=== PATIENT | female | born 1970 | race Caucasian/White ===

== ENCOUNTER 2018-03-26 11:32 | Emergency (ER) | payer OTHER ==
[2018-03-26] MEDS ORDERED: Ketorolac INJ* 30 MG/ML 1 ML VIAL IM ONE (12:34)
[2018-03-26] MEDS ORDERED: Cyclobenzaprine TAB* 10 MG PO ONE (12:34)
--- NOTE | 2018-03-26 13:47 | RAD ---
INDICATION: Left shoulder pain COMPARISON: None TECHNIQUE: Routine frontal, Y and axial views were obtained. FINDINGS: The bony structures, joint spaces, and soft tissues are normal for age. IMPRESSION: NO ACUTE FINDINGS.
[2018-03-26 14:18] VITALS: BP 128/66
--- NOTE | 2018-03-26 14:33 | ED ---
Upper Extremity Pain - HPI Summary HPI Summary: Patient is a 47-year-old female with no significant history of osteoarthritis the joint disease her previous shoulder injury presenting to the ED with left anterior and superior shoulder pain. She sustained an injury at work 2 days ago stating a salad cutter pushed into her left anterior shoulder. She states this has been injured since then but continues to work through the injury. Today the injury occurred again and she states she has intermittent numbness and tingling down the arm as well as up into the left side of the neck. Tenderness with movement and pain improves with rest. She has not taken ibuprofen or other medications for relief. She has a history of degenerative disc disease and has bilateral cervical tenderness at baseline. - History of Current Complaint Chief Complaint: EDExtremityUpper Stated Complaint: LT SHOULDER INJURY Time Seen by Provider: 03/26/18 11:41 Hx Obtained From: Patient Mechanism Of Injury: Direct Blow Onset/Duration: Started Days Ago Timing: Constant Severity Initially: Moderate Severity Currently: Moderate Pain Location: Collar, Shoulder Character: Aching Aggravating Factor(s): Movement, Lifting, Extension, Abduction Alleviating Factor(s): Rest Associated Signs & Symptoms: Positive: Numbness/Tingling, Neck Pain. Negative: Swelling, Redness, Bruising, Nausea Related History: Occupational Injury, Dominant Hand Left - Risk Factors Non-Orthopedic Risk Factor: Negative DVT Risk Factors: Negative Septic Arthritis Risk Factor: Negative Compartment Syndrome Risk Factors: Pain - Allergies/Home Medications Allergies/Adverse Reactions: Allergies Allergy/AdvReac Type Severity Reaction Status Date / Time codeine Allergy Rash Verified 03/26/18 11:42 PMH/Surg Hx/FS Hx/Imm Hx Previously Healthy: Yes - Immunization History Hx Pertussis Vaccination: No Immunizations Up to Date: Unable to Obtain/Confirm Infectious Disease History: No Infectious Disease History: Denies: Traveled Outside the [place] in Last 30 Days - Social History Occupation: Employed Full-time Lives: With Family Alcohol Use: Rare Hx Substance Use: No Substance Use Type: Reports: None Hx Tobacco Use: Yes Smoking Status (MU): Heavy Every Day Tobacco Smoker Review of Systems Constitutional: Negative Negative: Fever, Chills, Fatigue, Skin Diaphoresis Negative: Palpitations, Chest Pain Negative: Shortness Of Breath, Cough Negative: Abdominal Pain Genitourinary: Negative Positive: no symptoms reported, see HPI Positive: Arthralgia, Myalgia Skin: Negative Positive: Paresthesia, Numbness All Other Systems Reviewed And Are Negative: Yes Physical Exam Triage Information Reviewed: Yes Vital Signs On Initial Exam: Initial Vitals Temp Pulse Resp BP Pulse Ox 98.3 F 70 16 148/88 99 03/26/18 11:35 03/26/18 11:35 03/26/18 11:35 03/26/18 11:35 03/26/18 11:35 Vital Signs Reviewed: Yes Appearance: Positive: Well-Appearing, Well-Nourished Skin: Positive: Skin Color Reflects Adequate Perfusion Head/Face: Positive: Normal Head/Face Inspection Eyes: Positive: EOMI, JOVANNI Neck: Positive: Supple, No Lymphadenopathy Respiratory/Lung Sounds: Positive: Clear to Auscultation, Breath Sounds Present Cardiovascular: Positive: RRR, Pulses are Symmetrical in both Upper and Lower Extremities Musculoskeletal: Positive: Pain @ - left anterior and superior shoulder pain - worse with abduction Neurological: Positive: Alert, Oriented to Person Place, Time Psychiatric: Positive: Affect/Mood Appropriate AVPU Assessment: Alert Diagnostics - Vital Signs Vital Signs Temp Pulse Resp BP Pulse Ox 03/26/18 14:17 97.2 F 88 17 128/66 96 03/26/18 11:35 98.3 F 70 16 148/88 99 - Laboratory Lab Statement: Any lab studies that have been ordered have been reviewed, and results considered in the medical decision making process. Course/Dx - Course Course Of Treatment: During the course of treatment, the patient is evaluated for left shoulder pain secondary to injury at work. Left shoulder x-rays obtained which show negative for any acute bony findings. Discussed results with the patient. I discussed with the patient I believe there to be a component of tendinitis as she is complaining of tenderness to the anterior and superior shoulder with radiation of pain and numbness and tingling to the left arm which has been intermittent. For her occupation she has overuse of this extremity. She is left-hand dominant. I have given her Flexeril and Toradol for relief. She is given a note for work and I've discussed extensively with the patient information about rotator cuff tendinitis as well as overuse injury. She will follow-up with orthopedics for any worsening symptoms. - Diagnoses Differential Diagnosis/HQI/PQRI: Positive: Strain, Sprain Provider Diagnoses: Rotator cuff tendinitis Discharge - Sign-Out/Discharge Documenting (check all that apply): Discharge/Admit/Transfer - Discharge Plan Condition: Stable Disposition: HOME Prescriptions: Cyclobenzaprine TAB* [Flexeril TAB*] 10 mg PO BID PRN #15 tab PRN Reason: Spasms Ketorolac TAB * [Toradol TAB *] 10 mg PO Q6H #16 tab Patient Education Materials: Rotator Cuff Tendinitis (ED) Forms: *Work Release Referrals: Laith Haley MD [Medical Doctor] - No Primary Care Phys,NOPCP [Primary Care Provider] - Additional Instructions: Do not overuse extremity Rest the area as much as possible Moist heat to the area Flexeril twice daily as needed for muscle spasms, but may be used up to 3 times daily for extreme pain Toradol 4 times daily 4 days DO NOT TAKE IBUPROFEN, NAPROXEN OR OTHER ANTI-INFLAMMATORIES WHILE TAKING THIS MEDICATION After prescription of Toradol is completed, he may return to ibuprofen 600 mg 3 times daily - Billing Disposition and Condition Condition: STABLE Disposition: Home
== END 2018-03-26 14:17 | disposition home or self-care (01) ==
LOC: ED 11:32
DX: M75.102 Unspecified rotator cuff tear or rupture of left shoulder, not specified as traumatic (principal); F17.200 Nicotine dependence, unspecified, uncomplicated; Z88.5 Allergy status to narcotic agent
CPT/HCPCS: 96372; 99282; A9270-GY; J1885

== ENCOUNTER 2018-03-31 15:23 | Emergency (ER) | payer OTHER ==
--- NOTE | 2018-03-31 16:19 | ED ---
Upper Extremity Pain - HPI Summary HPI Summary: 47-year-old female presents with left shoulder pain for the past 6 days. She states she injured herself at work. States she ran into a machine and then salad cutter hit her on the anterior aspect of her shoulder. She states has been having intermittent numbness and tingling down her arm. She has a history of neck pain but usually on the right side. She states that her neck feels tense. She has been taking muscle relaxers with some relief. States she was prescribed Toradol which was helping but now is not working anymore. She has not taking anything today. No weakness. Is left-handed. Lifts a lot at work and has continued to need to lift. Wants a work note. Has a follow-up with orthopedic. No chest pain or shortness of breath. Pain is best when the arm is on abdomen. - History of Current Complaint Chief Complaint: EDShoulderClavicleInj Stated Complaint: LT SHLDR/ARM PAIN Time Seen by Provider: 03/31/18 15:51 - Allergies/Home Medications Allergies/Adverse Reactions: Allergies Allergy/AdvReac Type Severity Reaction Status Date / Time codeine Allergy Rash Verified 03/26/18 11:42 PMH/Surg Hx/FS Hx/Imm Hx Endocrine/Hematology History: Denies: Hx Anticoagulant Therapy Cardiovascular History: Denies: Hx Myocardial Infarction Infectious Disease History: No Infectious Disease History: Denies: Traveled Outside the [place] in Last 30 Days - Family History Known Family History: Positive: Hypertension - Social History Alcohol Use: Rare Hx Substance Use: No Substance Use Type: Reports: None Hx Tobacco Use: Yes Smoking Status (MU): Heavy Every Day Tobacco Smoker Review of Systems Negative: Fever Negative: Chest Pain Negative: Shortness Of Breath Positive: Myalgia - left shoulder pain All Other Systems Reviewed And Are Negative: Yes Physical Exam Triage Information Reviewed: Yes Vital Signs On Initial Exam: Initial Vitals Temp Pulse Resp BP Pulse Ox 97.5 F 79 16 129/90 100 03/31/18 15:26 03/31/18 15:26 03/31/18 15:26 03/31/18 15:26 03/31/18 15:26 Vital Signs Reviewed: Yes Appearance: Positive: Well-Appearing Skin: Positive: Warm, Dry Head/Face: Positive: Normal Head/Face Inspection Eyes: Positive: Normal, Conjunctiva Clear ENT: Positive: Pharynx normal Respiratory/Lung Sounds: Positive: Clear to Auscultation, Breath Sounds Present Cardiovascular: Positive: Normal, RRR Musculoskeletal: Positive: Limited @ - left shoulder, Other - good pulses, capillary refill<2 secs, pos hawkin impingement, neg drop arm, tenderness entire shoulder, tenderness left side of neck, good cloud systems architect strength, neg yearsgons Neurological: Positive: Normal Psychiatric: Positive: Normal Diagnostics - Vital Signs Vital Signs Temp Pulse Resp BP Pulse Ox 03/31/18 15:26 97.5 F 79 16 129/90 100 - Laboratory Lab Statement: Any lab studies that have been ordered have been reviewed, and results considered in the medical decision making process. Course/Dx - Course Course Of Treatment: 47-year-old female with no significant history of osteoarthritis the joint disease her previous shoulder injury presenting to the ED with left anterior and superior shoulder pain. She sustained an injury at work 2 days ago stating a salad cutter pushed into her left anterior shoulder. She states this has been injured since then but continues to work through the injury. Today the injury occurred again and she states she has intermittent numbness and tingling down the arm as well as up into the left side of the neck. Tenderness with movement and pain improves with rest. She has not taken ibuprofen or other medications for relief. She has a history of degenerative disc disease and has bilateral cervical tenderness at baseline. On exam no edema noted. tenderness over left sided neck. Tenderness over the anterior shoulder. Positive Pak. neg yearsons. neurovascular intact. normal imaging a couple days ago. discussed with patient will have continue muscular relaxer and have follow up with ortho. will have stop lifting at work as likely making it worst. patient understand and agrees with plan. - Diagnoses Differential Diagnosis/HQI/PQRI: Positive: Fracture (Closed), Strain, Sprain Provider Diagnoses: Left shoulder pain Discharge - Sign-Out/Discharge Documenting (check all that apply): Discharge/Admit/Transfer - Discharge Plan Condition: Good Disposition: HOME Prescriptions: Methocarbamol TAB* [Robaxin 500 MG TAB*] 500 mg PO TID PRN #21 tab PRN Reason: Pain Patient Education Materials: Shoulder Pain (ED) Forms: *Work Release Referrals: Pradip Lilly MD [Medical Doctor] - Additional Instructions: Take Tylenol and ibuprofen every 6 hours as needed for pain use muscle relaxer three times a day for pain Ice/heat do range of motion activities for shoulder as tolerate Follow up with ortho Return to ED if develop any new or worsening symptoms - Billing Disposition and Condition Condition: GOOD Disposition: Home
[2018-03-31] MEDS ORDERED: Methocarbamol TAB* 500 MG PO ONE (16:27)
[2018-03-31 16:38] VITALS: BP 133/75
== END 2018-03-31 16:37 | disposition home or self-care (01) ==
LOC: ED 15:23
DX: M25.512 Pain in left shoulder (principal); F17.210 Nicotine dependence, cigarettes, uncomplicated
CPT/HCPCS: 99282; A9270-GY